=== PATIENT | female | born 1980 | race Caucasian/White ===

== ENCOUNTER 2021-12-04 20:24 | Emergency (ER) | payer OTHER ==
[2021-12-04 20:58] VITALS: BP 116/72; PULSE 78; TEMP 98.5; BMI 24.7
== END 2021-12-04 21:02 | disposition home or self-care (01) ==
LOC: FER 20:24
DX: S00.83XA Contusion of other part of head, initial encounter (principal); W21.03XA Struck by baseball, initial encounter
CPT/HCPCS: 81025; 99283-25